=== PATIENT | male | born 1990 | race Caucasian/White ===

== ENCOUNTER 2017-07-19 14:29 | Outpatient (CLI) | payer BC ==
--- NOTE | 2017-07-19 17:20 | ULT ---
BILATERAL TESTICULAR ULTRASOUND WITH DOPPLER MAN SCALE, COLOR FLOW WITH SPECTRAL DOPPLER 07/19/17 HISTORY: Epididymal cyst. FINDINGS: Right testis measures 3.2 x 4.1 x 2.3 cm and the left testis measures 3.1 x 4.4 x 2.9 cm. There are a few small calcifications in the testes on either side without associated mass. Symmetric blood flow see to both testes and epididymi. There is a 5 mm cyst in the right epididymal head. The left epididy mis is normal. No significant hydroceles are seen. IMPRESSION: 1. Right epididymal head cyst/spermatocele. 2. Calcifications in the testes without evidence of associated mass. POS: [facility]
== END 2017-07-19 14:30 | disposition home or self-care (01) ==
LOC: ULT 14:29
PROVIDERS: ATTEND Family Medicine
DX: N50.3 Cyst of epididymis (principal); N50.89 Other specified disorders of the male genital organs
CPT/HCPCS: 76870; 93976

== ENCOUNTER 2019-10-13 06:08 | Outpatient (CLI) | payer OTHER ==
[2019-10-13 11:19] LABS: Anion Gap 14 mmol/L (10-20); BUN (Urea Nitrogen) 26 mg/dL (8.9-20.6); Calc. Creatinine Clearance 0 mL/min (70-130); Calcium 9.4 mg/dL (7.8-10.44); Carbon Dioxide 27 mmol/L (22-29); Chloride 103 mmol/L (98-107); Estimated GFR-MDRD 81; Sodium 140 mmol/L (136-145)
[2019-10-13 11:26] LABS: Glucose 45 mg/dL (70-105)
[2019-10-13 18:41] LABS: SARS-CoV-2 MS2 Positive; SARS-CoV-2 N Gene Negative; SARS-CoV-2 S Gene Negative; SARS-CoV-2 orf1ab Negative
== END 2019-10-13 06:09 | disposition home or self-care (01) ==
LOC: LABBT 06:08
PROVIDERS: ATTEND Surgery
DX: Z01.812 Encounter for preprocedural laboratory examination (principal); Z11.59 Encounter for screening for other viral diseases; K40.90 Unilateral inguinal hernia, without obstruction or gangrene, not specified as recurrent
CPT/HCPCS: 80048; 87635; U0003